=== PATIENT | male | born 1975 | race Caucasian/White ===

== ENCOUNTER 2022-07-07 10:22 | Outpatient (CLI) | payer BC, SELFPAY ==
--- NOTE | ~2022-07-07 | US_ITS ---
US abdomen complete EXAMINATION: US Abdomen Complete INDICATION: Right upper quadrant pain PROCEDURE: Realtime High Resolution abdomen ultrasound. COMPARISON: No prior studies for comparison FINDINGS: Gallbladder within normal limits. No gallstones, pericholecystic fluid, gallbladder wall t hickening or biliary dilatation. Common bile duct measures 5.5 mm. Liver echotexture within normal limits without focal mass. Pancreas within normal limits. Pancreati c tail is obscured by bowel gas. Spleen is unremarkeable. Renal echotexture is within normal limits bilaterally without hydronephrosis, contour deforming mass or renal stone. Right kidney measures 10.9 cm. Left kidney measures 11.5 cm. Visualized aspects of the aorta and IVC are within normal limits. Portal vein is patent. No sonograph ic Lopez's sign indicated by the technologist. IMPRESSION: 1: Normal abdominal ultrasound. Reviewed, dictated and finalized at [facility].
== END 2022-07-07 10:23 | disposition home or self-care (01) ==
PROVIDERS: PCP Family Medicine; Visit Provider Family Medicine
DX: R10.11 Right upper quadrant pain (principal)
CPT/HCPCS: 76700

== ENCOUNTER 2022-09-17 02:05 | Day surgery (SDC) | payer BC, SELFPAY ==
[2022-09-08 12:59] VITALS: BMI 35.0
[2022-09-17] MEDS: LACTATED RINGERS 1,000 ML 150 ML IV CONT (09:10)
[2022-09-17 09:15] VITALS: BP 130/83; PULSE 69; RESP 18; TEMP 36.3; O2SAT 100; BMI 36.0
--- NOTE | 2022-09-17 09:40 | WPDANESEPPF ---
Anes - Initial Pre Proc Eval Procedure: Operation Date: 09/17/22 10:00 Proposed Procedures p Screening Colonoscopy - Darin Castorena MD Date/Time: 09/17/22 09:40 Surgeon: Darin Castorena MD Pre Op Diagnosis: neoplasm screening Patient Data Age: 47 Gender: M Height: 1.8 m Weight: 117.1 kg Last Vital Signs Temp 97.4 F L 09/17/22 09:15 Pulse 69 09/17/22 09:15 Resp 18 09/17/22 09:15 BP 130/83 09/17/22 09:15 Pulse Ox 100 09/17/22 09:15 O2 Del Method Room Air 09/17/22 09:15 Allergies Allergy/AdvReac Type Severity Reaction Status Date / Time No Known Allergies Allergy Verified 09/17/22 09:13 Home Medications Medication Instructions Recorded Confirmed Type cholecalciferol (vitamin D3) 50 50 mcg PO DAILY 09/08/22 09/17/22 History mcg (2,000 unit) capsule (Vitamin D3) esomeprazole magnesium 40 mg 40 mg PO DAILY 09/08/22 09/17/22 History capsule,delayed release (Nexium) fluoxetine 40 mg capsule 40 mg PO DAILY 09/08/22 09/17/22 History Patient hx anesthesia problems: none Family hx anesthesia problems: none Results Review: All pre-operative results and documents have been reviewed as part of the pre-operative evaluation. [facility] Social History Social History Smoking packs per day: 0.5 Smoking cigarettes per day: 10.0 Years smoked: 6 Smoking pack-years: 3.00 Tobacco type: cigarettes Alcohol intake: current Drinks per week: 36 Alcohol use details: 18 pack on Sundays, 18 pack on Mondays Living arrangements: with family Spiritual care concerns: No Anes - Eval Final PreProcedure Day of Procedure 09/17/22 09:40 Patient weight: obese Heart: regular rate and rhythm Lungs: clear to auscultation Airway: Mallampati scale class II Neurological: alert and oriented Last oral intake: >/= 8 hours ASA classification: III Emergent: no Anesthetic plan: proceed Anesthesia type and monitoring: general GIVS and standard monitoring Results Review: All pre-operative results and documents have been reviewed as part of the pre-operative evaluation. Informed Consent: The patient's anesthetic plan and its attendant risks and benefits were discussed with the patient/family/POA. Questions were solicited and answers provided to the satisfaction of the patient/family/POA.
--- NOTE | 2022-09-17 09:47 | PM.HPGS ---
History of Present Illness History of Present Illness Consent: Risks, benefits, and alternatives have been discussed and questions answered. Patient agrees to proceed with procedure. Chief complaint: neoplasm screening Narrative: Fei Zafar is a 47 year old male Presents for screening colonoscopy. Patient's current weight appetite and bowel movements are normal. Patient denies abdominal pain. He has had no bleeding. Family history noncontributory. Review of Systems Review of Systems: Review of systems noncontributory. [facility] Social History Social History Smoking packs per day: 0.5 Smoking cigarettes per day: 10.0 Years smoked: 6 Smoking pack-years: 3.00 Tobacco type: cigarettes Alcohol intake: current Drinks per week: 36 Alcohol use details: 18 pack on Sundays, 18 pack on Mondays Living arrangements: with family Spiritual care concerns: No Meds Home Medications and Allergies Home Medications Medication Instructions Recorded Confirmed Type cholecalciferol (vitamin D3) 50 50 mcg PO DAILY 09/08/22 09/17/22 History mcg (2,000 unit) capsule (Vitamin D3) esomeprazole magnesium 40 mg 40 mg PO DAILY 09/08/22 09/17/22 History capsule,delayed release (Nexium) fluoxetine 40 mg capsule 40 mg PO DAILY 09/08/22 09/17/22 History Allergies Allergy/AdvReac Type Severity Reaction Status Date / Time No Known Allergies Allergy Verified 09/17/22 09:13 Vital Signs Vital Signs - 24 hr 09/17/22 09:15 Temperature 97.4 F L Pulse Rate 69 Respiratory Rate 18 Blood Pressure 130/83 Pulse Oximetry 100 Oxygen Delivery Room Air Exam Narrative: Physical exam reveals patient to be alert. Vital signs stable. HEENT exam is unremarkable. Patient is anicteric. Lungs are clear to auscultation and percussion. Heart is without murmur or extra sounds. Abdomen bowel sounds are present soft nontender with no organomegaly. Digital external rectal exam normal. Assessment and Plan Assessment and plan (1) Encounter for screening colonoscopy: Code(s): Z12.11 - Encounter for screening for malignant neoplasm of colon Status: Acute Assessment and Plan: Patient presents today for screening colonoscopy. He appears to be at average risk for colon polyps. Further recommendations may be given after endoscopy.
[2022-09-17 10:15] VITALS: BP 110/66; PULSE 71; RESP 19; O2SAT 95
[2022-09-17 10:24] VITALS: BP 102/71; PULSE 65; RESP 19; O2SAT 97
[2022-09-17 10:34] VITALS: BP 114/77; PULSE 65; RESP 20; O2SAT 100
== END 2022-09-17 10:43 | disposition home or self-care (01) ==
PROVIDERS: PCP Family Medicine; Visit Provider Internal Medicine Gastroenterology
PROC: 0DJD8ZZ Inspection of Lower Intestinal Tract, Via Natural or Artificial Opening Endoscopic (ICD-10-PCS; CPT 45378; principal; 2022-09-17 10:00)
DX: Z12.11 Encounter for screening for malignant neoplasm of colon (principal); D12.3 Benign neoplasm of transverse colon; K64.8 Other hemorrhoids; K57.30 Diverticulosis of large intestine without perforation or abscess without bleeding; F17.210 Nicotine dependence, cigarettes, uncomplicated; E66.9 Obesity, unspecified; Z68.36 Body mass index [BMI] 36.0-36.9, adult
CPT/HCPCS: 45385; 88305; J2001; J2704; J7120